=== PATIENT | female | born 1975 | race Caucasian/White ===

== ENCOUNTER 2019-05-05 05:23 | Emergency (ER) | payer BC ==
[2019-05-05] MEDS ORDERED: SODIUM CHLORIDE 0.9% (FLUSH) 10 ML SYG IV PRN (05:28)
[2019-05-05] MEDS ORDERED: ONDANSETRON INJ 4 MG/2 ML VIAL IV ONE (05:28)
[2019-05-05] MEDS ORDERED: SODIUM CHLORIDE 0.9% 1000ML 1,000 ML IVS ONE (05:29)
[2019-05-05] MEDS ORDERED: KETOROLAC TROMETHAMINE INJ 30 MG/ML VIAL IV ONE (05:41)
[2019-05-05] MEDS ORDERED: KETOROLAC TROMETHAMINE INJ 30 MG/ML VIAL ONE (05:44)
--- NOTE | 2019-05-05 05:44 | ED.PDOC ---
History of Present Illness - General Chief Complaint: GI Problem Stated Complaint: N/V, headache, shivering Time Seen by Provider: 05/05/19 05:28 Source: patient - History of Present Illness Initial Comments: 43 yo female with PMH of depression, migraines who presents with cc of nausea & vomiting. 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 She suddenly became nauseous and had numerous episodes of NBNB emesis. Reports also nauseating generalized abdominal discomfort which is coming and going. Also reports moderate frontal headache since onset of sx's. Denies any fevers, chest pain, cough, sore throat, dyspnea, urinary sx's. No meds taken for relief, no known recent sick contacts. She reports feeling markedly better on arrival here with warm blankets and lying down. Allergies/Adverse Reactions: Allergies Iodine Allergy (Verified 05/05/19 05:40) Home Medications: Ambulatory Orders Fluoxetine HCl 20 mg PO DAILY 05/05/19 Ondansetron Odt [Zofran ODT] 8 mg PO TID PRN 5 Days #10 tab 05/05/19 Topiramate [Topamax] 50 mg PO DAILY 05/05/19 Review of Systems - Review of Systems Review of Systems: 05/05/19 05:44 as per HPI All other Systems: Reviewed and Negative Past Medical History (General) - Patient Medical History Hx Seizures: No Hx Stroke: No Hx Dementia: No Hx Asthma: No Hx of COPD: No Hx Cardiac Disorders: No Hx Congestive Heart Failure: No Hx Pacemaker: No Hx Hypertension: No Hx Thyroid Disease: No Hx Diabetes: No Hx Gastroesophageal Reflux: No Hx Renal Disease: No Hx Cancer: No Hx of HIV: No Hx Hepatitis C: No Hx MRSA: No Surgical History: appendectomy, tonsillectomy, Hysterectomy - Vaccination History Hx Tetanus, Diphtheria Vaccination: No Hx Influenza Vaccination: No - Social History Hx Alcohol Use: No Family Medical History - Family History Mother Family History: Unknown Physical Exam - Physical Exam General Appearance: Alert, No apparent distress Eye Exam: bilateral normal Ears, Nose, Throat: hearing grossly normal, normal ENT inspection, normal pharynx Neck: non-tender, full range of motion, supple, normal inspection Respiratory: lungs clear, normal breath sounds, no respiratory distress Cardiovascular/Chest: normal peripheral pulses, regular rate, rhythm, no edema, no murmur Peripheral Pulses: radial,right: 2+, radial,left: 2+ Gastrointestinal/Abdominal: soft, abnormal bowel sounds - diminished throughout, tenderness - mild generalized Back Exam: normal inspection, no CVA tenderness, no vertebral tenderness Extremity: normal range of motion, non-tender, normal inspection, no pedal edema, no calf tenderness Neurologic: pocket maker II-XII nml as tested, no motor/sensory deficits, alert, normal mood/affect, oriented x 3 Skin Exam: normal color, warm/dry Progress - Progress Progress: 05/05/19 05:45 Nausea & vomiting -consider hypothermia vs viral gastroenteritis vs flu vs UTI vs electrolyte derangement vs acute pancreatitis vs other -Temp 97.8 F on arrival, remainder of vitals wnl, pt NAD -obtain stat labs, UA, flu swab -Zofran 4 mg IV, Toradol 30 mg IV 05/05/19 06:29 -Pt reports feeling markedly better, nausea and MICHELE resolved with meds. -Labs reveal WBC 15,000 with 94% segs and no bands. K 3.2 but CMP otherwise unremarkable. UA unremarkable. Flu is negative. -Suspect leukocytosis is likely from vomiting and brief mild hypothermia, which is now resolved. Will obtain CXR to rule out PNA. If wnl, will plan for likely dc to home. Ricco Bangura MD Billing #[id number] Departure - Departure Clinical Impression: Gastroenteritis Time of Disposition: 06:33 Disposition: Discharge to Home or Self Care Condition: Fair Departure Forms: ED Discharge - Pt. Copy, Patient Portal Self Enrollment Instructions: Viral Gastroenteritis, Adult (DC) Diet: regular diet Activity: increase activity as tolerated Prescriptions: Ondansetron Odt [Zofran ODT] 8 mg PO TID PRN 5 Days #10 tab PRN Reason: Nausea Home Medications: Ambulatory Orders Fluoxetine HCl 20 mg PO DAILY 05/05/19 Ondansetron Odt [Zofran ODT] 8 mg PO TID PRN 5 Days #10 tab 05/05/19 Topiramate [Topamax] 50 mg PO DAILY 05/05/19 Additional Instructions: Remain warm and well-hydrated. Increase diet and activity level slowly as tolerated. You may take Zofran as directed for nausea. Continue taking Tylenol and ibuprofen as needed for headache. Return if symptoms return or other concerning symptoms develop such as chest pain, shortness of breath, abdominal pain, etc... Follow up with your primary care doctor in 1-2 weeks is recommended or sooner as needed.
[2019-05-05] MEDS ORDERED: POTASSIUM CHLORIDE 20 MEQ TAB PO ONE (06:25)
[2019-05-05 06:52] VITALS: BP 139/78; TEMP 98.4; O2SAT 98
--- NOTE | 2019-05-05 07:27 | RAD ---
EXAM: XR Chest, 1 View CLINICAL HISTORY: The patient is 43 years old and is Female; leukocytosis, chills TECHNIQUE: Frontal view of the chest. COMPARISON: No relevant prior studies available. FINDINGS: LUNGS: Unremarkable. No consolidation. PLEURAL SPACE: Unremarkable. No pneumothorax. HEART: No significant enlargement of the cardiac silhouette. MEDIASTINUM: Unremarkable. BONES/JOINTS: No acute osseous findings. IMPRESSION: No acute findings visualized in the chest. Electronically signed by: Radha Thomson MD 05/05/2019 7:25 AM [employer]NAGER [employer]
== END 2019-05-05 06:50 | disposition home or self-care (01) ==
LOC: ER 05:23
DX: K52.9 Noninfective gastroenteritis and colitis, unspecified (principal); R51 Headache; F32.9 Major depressive disorder, single episode, unspecified; Z91.041 Radiographic dye allergy status; Z79.899 Other long term (current) drug therapy; Z90.49 Acquired absence of other specified parts of digestive tract
CPT/HCPCS: 36415; 71045; 80048; 80076; 81001; 81025; 82150; 83690; 85025; 87502; J1885; J2405